=== PATIENT | female | born 1985 | race Caucasian/White ===

== ENCOUNTER 2019-08-14 08:38 | Inpatient (IN) | payer MEDICAID, OTHER ==
[~2019-08-14] VITALS: Ht 167.6 cm; Wt 68.6 kg
[~2019-08-14 08:38] MED LIST: FOLI-17 PO; SULF-169 PO; THIA100T67 PO
[2019-08-14] MEDS ORDERED: SODIUM CHLORIDE FLUSH 10ML SYR IVF ONE (09:00)
--- NOTE | 2019-08-14 09:15 | NUR ---
PT PLACED ON ALL ROOM MONITORING EQUIPMENT. PT KEPT ON 6 LITERS VIA NC WITH SATS IMPROVING TO 94%. PT STATES ON BCP, LMP LAST WEEK. AFTER PT ASSESSMENT, SPOUSE OUTSIDE ROOM INFORMING THIS RN THAT PT IS , TOLD HIM OF SUCH ONE MONTH AGO AND HAS STATED SHE WANTS AN . APPT SCHEDULED WITH MD IN TWO WEEKS. PT WITH HX OF DEPRESSION, BIPOLAR, SCHIZOPHRENIA, CHRONIC BACK PAIN AND HAS BEEN TAKING PAIN MEDICATION INCLUDING HYDROCODONE QID, MORPHINE TID. PT ALSO 1.5 PPD SMOKER. ERP INFORMED OF THIS HX. CALL LIGHT WITHIN REACH. LAB IN TO DRAW. Addendum: 08/14/19 at 0935 by NEGRITA CORRECTION- APPT WITH MD IN TWO DAYS.
[2019-08-14] MEDS ORDERED: MORP-52 PO (09:33)
[2019-08-14] MEDS ORDERED: QUET200T4 PO (09:33)
[2019-08-14] MEDS ORDERED: TRAZ150T62 PO (09:33)
[2019-08-14] MEDS ORDERED: BUSP5TAB2 PO (09:33)
[2019-08-14] MEDS ORDERED: VENL25TA PO (09:33)
[2019-08-14] MEDS ORDERED: VENL150C6 PO (09:34)
[2019-08-14] MEDS ORDERED: MELO15TA24 PO (09:34)
[2019-08-14 09:38] LABS: MEAN CORPUSCULAR HEMOGLOBIN 32.5 pg (27.0-34.8); MEAN CORPUSCULAR HGB CONC 32.9 g/dL (32.4-35.8); MEAN CORPUSCULAR VOLUME 98.9 fL (80-100); PLATELET COUNT 348 x10^3/uL (130-400); RED BLOOD COUNT 3.47 x10^6/uL (3.82-5.3); RED CELL DISTRIBUTION WIDTH 14.5 % (9.6-15.2)
[2019-08-14] MEDS ORDERED: ALBUTEROL SULFATE 2.5 MG/3 ML ONE (09:45)
[2019-08-14 09:50] LABS: ALANINE AMINOTRANSFERASE 42 U/L (12-78); ALBUMIN 2.5 g/dL (3.4-5.0); ANION GAP 5 mmol/L (5-15); CALCIUM 8.2 mg/dL (8.5-10.1); CHLORIDE 111 mmol/L (98-107); CREATININE 0.74 mg/dL (0.55-1.02)
--- NOTE | 2019-08-14 09:59 | NUR ---
[facility] IN TO SEE PT.
[2019-08-14] MEDS ORDERED: CEFTRIAXONE PMX 1GM/50ML 50 ML IVPB ONE (10:00)
[2019-08-14] MEDS ORDERED: AZITHROMYCIN 500 MG in SODIUM CHLORIDE 0.9% 250 ML IVPB ONE (10:00)
[2019-08-14 10:07] LABS: ALKALINE PHOSPHATASE 111 U/L (45-117); BILIRUBIN,TOTAL 0.3 mg/dL (0.2-1.0); TOTAL PROTEIN 7.2 g/dL (6.4-8.2); TROPONIN I < 0.015 ng/mL (0.000-0.045)
[2019-08-14 10:08] LABS: MD YES
--- NOTE | 2019-08-14 10:15 | NUR ---
FLU SWAB COLLECTED/SENT TO LAB.
[2019-08-14] MEDS ORDERED: MORPHINE SULFATE 4 MG/ML, 1ML ONE (10:17)
[2019-08-14] MEDS ORDERED: CEFTRIAXONE PMX 2GM/50ML 50 ML ONE (10:17)
[2019-08-14] MEDS ORDERED: ONDANSETRON 2MG/ML, 2ML ONE (10:17)
[2019-08-14] MEDS: CEFTRIAXONE PMX 2GM/50ML 50 ML IV SCH (10:22)
[2019-08-14] MEDS: morphine SULFATE 10 MG/ML, 1ML IVPush PRN ×3 (10:22→20:57)
--- NOTE | 2019-08-14 10:24 | NUR ---
IV PLACED, NS BOLUS INFUSING. ANTIBIOTIC INFUSING AFTER VERIFICATION BC X 2 DRAWN. PT MEDICATED PER ORDER FOR 02/23 CP. CALL LIGHT WITHIN REACH, SPOUSE AT BS.
[2019-08-14] MEDS ORDERED: SODIUM CHLORIDE 0.9% 1,000ML IVBOLUS ONE ×2 (10:30→11:00)
[2019-08-14] MEDS ORDERED: HEPARIN 5,000 UNITS/ML, 1ML SQ SCH (10:30)
[2019-08-14] MEDS ORDERED: PROMETHAZINE 25 MG/ML, 1ML IM PRN (10:30)
[2019-08-14] MEDS ORDERED: NICOTINE 21 MG/24 HR PATCH.TD24 TD SCH (10:30)
[2019-08-14] MEDS ORDERED: LABETALOL 5MG/ML, 20ML IVPush PRN (10:30)
[2019-08-14] MEDS ORDERED: hydrALAzine 20 MG/ML, 1ML IVPush PRN (10:30)
[2019-08-14] MEDS ORDERED: ONDANSETRON 2MG/ML, 2ML IVPush PRN (10:30)
[2019-08-14] MEDS ORDERED: SODIUM CHLORIDE 0.9% 2,500 ML IV ONE (10:30)
--- NOTE | 2019-08-14 10:36 | NUR ---
PT TO US
[2019-08-14 10:42] LABS: RAPID INFLUENZA A Negative (Negative); RAPID INFLUENZA B Negative (Negative)
--- NOTE | 2019-08-14 10:58 | NUR ---
PT BACK FROM US. FLU NEG, ATTEMPT TO CALL REPORT.
[2019-08-14 11:53] VITALS: BP 121/76
[2019-08-14 12:00] VITALS: BP 121/76
[2019-08-14 12:24] LABS: <PLATELET ESTIMATE> ADEQUATE; <PLT MORPHOLOGY> NORMAL PLT MORPH; <RBC MORPHOLOGY> NORMAL; BANDS%(MANUAL) 2 % (0-7); LYMPH#(MANUAL) 1.59 x10^3/uL (1-3.4); LYMPHS% (MANUAL) 8 % (22-44); MONOS% (MANUAL) 4 % (2-9); SEG#(MANUAL) 17.11 x10^3/uL (1.8-6.8); SEGS% (MANUAL) 86 % (42-75)
[2019-08-14] MEDS: DOCUSATE 100 MG CAPSULE PO SCH ×2 (13:31→21:00)
[2019-08-14] MEDS: GUAIFENESIN 200 MG TABLET PO SCH ×3 (13:31→20:58)
[2019-08-14 14:38] LABS: HCG UR SG 1.019 (1.003-1.030)
[2019-08-14] MEDS: ALBUTEROL/IPRATROPIUM 2.5MG/0.5MG, 3 ML NPPB SCH ×2 (15:00→20:23)
[2019-08-14] MEDS: AZITHROMYCIN 500 MG in SODIUM CHLORIDE 0.9% 250 ML IV SCH (15:38)
[2019-08-14] MEDS: BUSPIRONE 5 MG TABLET PO SCH ×2 (16:19→20:58)
[2019-08-14] MEDS ORDERED: CARI350T14 PO (16:30)
[2019-08-14] MEDS ORDERED: GABA300C10 PO (16:30)
[2019-08-14] MEDS: HYDROcodone/APAP 5/325 TABLET PO PRN (19:05)
[2019-08-14 20:18] VITALS: BP 124/74
[2019-08-14] MEDS: TRAZODONE 150MG TABLET PO SCH (20:58)
[2019-08-14] MEDS: ACETAMINOPHEN 325 MG TABLET PO PRN (22:03)
[2019-08-15 01:19] VITALS: BP 102/55
[2019-08-15] MEDS: ACETAMINOPHEN 325 MG TABLET PO PRN ×2 (02:45→08:44)
[2019-08-15] MEDS: morphine SULFATE 10 MG/ML, 1ML IVPush PRN ×4 (02:45→16:50)
[2019-08-15] MEDS: SODIUM CHLORIDE 0.9% 1,000 ML IV SCH ×2 (02:51→14:57)
[2019-08-15 04:58] VITALS: BP 114/73
[2019-08-15] MEDS: HYDROcodone/APAP 5/325 TABLET PO PRN ×3 (05:03→14:57)
[2019-08-15] MEDS: GUAIFENESIN 200 MG TABLET PO SCH ×4 (05:04→20:34)
[2019-08-15 06:27] LABS: BASOPHILS # (AUTO) 0.04 x10^3/uL (0-0.1); BASOPHILS % (AUTO) 0 % (0-1); EOSINOPHILS # (AUTO) 0.36 x10^3/uL (0-0.4); EOSINOPHILS % (AUTO) 3 % (1-7); LYMPHOCYTES # (AUTO) 2.09 x10^3/uL (1-3.4); LYMPHOCYTES % (AUTO) 18 % (22-44); MD NO; MEAN CORPUSCULAR HEMOGLOBIN 32.1 pg (27.0-34.8); MEAN CORPUSCULAR HGB CONC 33.2 g/dL (32.4-35.8); MEAN CORPUSCULAR VOLUME 96.7 fL (80-100); MEAN PLATELET VOLUME 6.6 fL (7.4-10.4); MONOCYTES # (AUTO) 0.16 x10^3/uL (0.2-0.8); MONOCYTES % (AUTO) 1 % (2-9); NEUTROPHILS # (AUTO) 8.73 x10^3/uL (1.8-6.8); NEUTROPHILS % (AUTO) 77 % (42-75); PLATELET COUNT 335 x10^3/uL (130-400); RED BLOOD COUNT 3.12 x10^6/uL (3.82-5.3); RED CELL DISTRIBUTION WIDTH 14.4 % (9.6-15.2)
[2019-08-15 06:38] LABS: ALANINE AMINOTRANSFERASE 32 U/L (12-78); ALBUMIN 2.1 g/dL (3.4-5.0); ANION GAP 5 mmol/L (5-15); CALCIUM 7.9 mg/dL (8.5-10.1); CHLORIDE 113 mmol/L (98-107); CREATININE 0.52 mg/dL (0.55-1.02)
[2019-08-15 06:40] VITALS: BP 107/73
[2019-08-15 06:41] LABS: ALKALINE PHOSPHATASE 92 U/L (45-117); BILIRUBIN,TOTAL 0.7 mg/dL (0.2-1.0); TOTAL PROTEIN 6.2 g/dL (6.4-8.2)
[2019-08-15] MEDS: ALBUTEROL/IPRATROPIUM 2.5MG/0.5MG, 3 ML NPPB SCH ×4 (07:42→21:10)
[2019-08-15] MEDS: ENOXAPARIN 40 MG/0.4 ML SQ SCH (08:30)
[2019-08-15] MEDS ORDERED: ENOXAPARIN 40 MG/0.4 ML ONE (08:32)
[2019-08-15] MEDS: BUSPIRONE 5 MG TABLET PO SCH ×3 (08:44→20:34)
[2019-08-15] MEDS: DOCUSATE 100 MG CAPSULE PO SCH ×2 (08:44→20:34)
[2019-08-15] MEDS: CEFTRIAXONE PMX 2GM/50ML 50 ML IV SCH (11:10)
[2019-08-15 12:35] VITALS: BP 118/73
[2019-08-15] MEDS: AZITHROMYCIN 500 MG in SODIUM CHLORIDE 0.9% 250 ML IV SCH (14:57)
[2019-08-15] MEDS: BENZONATATE 100 MG CAPSULE PO PRN (16:48)
[2019-08-15 20:30] VITALS: BP 130/79
[2019-08-15] MEDS: TRAZODONE 150MG TABLET PO SCH (20:34)
[2019-08-16] MEDS: BENZONATATE 100 MG CAPSULE PO PRN ×3 (00:19→21:03)
[2019-08-16] MEDS: HYDROcodone/APAP 5/325 TABLET PO PRN ×3 (00:23→16:55)
[2019-08-16 01:34] VITALS: BP 106/58
[2019-08-16] MEDS: SODIUM CHLORIDE 0.9% 1,000 ML IV SCH ×2 (04:32→16:47)
[2019-08-16 05:47] LABS: ALANINE AMINOTRANSFERASE 33 U/L (12-78); ANION GAP 8 mmol/L (5-15); CALCIUM 7.9 mg/dL (8.5-10.1); CHLORIDE 112 mmol/L (98-107); CREATININE 0.56 mg/dL (0.55-1.02)
[2019-08-16 05:49] LABS: ALKALINE PHOSPHATASE 99 U/L (45-117); BILIRUBIN,TOTAL 0.2 mg/dL (0.2-1.0); TOTAL PROTEIN 6.2 g/dL (6.4-8.2)
[2019-08-16] MEDS: GUAIFENESIN 200 MG TABLET PO SCH ×4 (06:20→20:58)
[2019-08-16 07:00] VITALS: BP 109/69
[2019-08-16 07:13] LABS: BASOPHILS # (AUTO) 0.01 x10^3/uL (0-0.1); BASOPHILS % (AUTO) 0 % (0-1); EOSINOPHILS # (AUTO) 0.47 x10^3/uL (0-0.4); EOSINOPHILS % (AUTO) 5 % (1-7); LYMPHOCYTES # (AUTO) 1.37 x10^3/uL (1-3.4); LYMPHOCYTES % (AUTO) 14 % (22-44); MD NO; MEAN CORPUSCULAR HEMOGLOBIN 31.7 pg (27.0-34.8); MEAN CORPUSCULAR HGB CONC 32.7 g/dL (32.4-35.8); MEAN CORPUSCULAR VOLUME 96.9 fL (80-100); MONOCYTES # (AUTO) 0.19 x10^3/uL (0.2-0.8); MONOCYTES % (AUTO) 2 % (2-9); NEUTROPHILS # (AUTO) 8.07 x10^3/uL (1.8-6.8); NEUTROPHILS % (AUTO) 80 % (42-75); PLATELET COUNT 330 x10^3/uL (130-400); RED BLOOD COUNT 3.61 x10^6/uL (3.82-5.3); RED CELL DISTRIBUTION WIDTH 13.9 % (9.6-15.2)
[2019-08-16] MEDS: ENOXAPARIN 40 MG/0.4 ML SQ SCH (08:20)
[2019-08-16] MEDS: ALBUTEROL/IPRATROPIUM 2.5MG/0.5MG, 3 ML NPPB SCH ×4 (08:25→21:20)
[2019-08-16] MEDS: DOCUSATE 100 MG CAPSULE PO SCH ×2 (09:00→20:58)
[2019-08-16] MEDS: CEFTRIAXONE PMX 2GM/50ML 50 ML IV SCH (09:52)
[2019-08-16] MEDS: BUSPIRONE 5 MG TABLET PO SCH ×3 (09:52→20:58)
[2019-08-16 12:17] VITALS: BP 122/69
[2019-08-16] MEDS: ACETAMINOPHEN 325 MG TABLET PO PRN (16:45)
[2019-08-16] MEDS: AZITHROMYCIN 500 MG in SODIUM CHLORIDE 0.9% 250 ML IV SCH (16:47)
[2019-08-16 20:15] VITALS: BP 115/72
[2019-08-16] MEDS: TRAZODONE 150MG TABLET PO SCH (20:58)
[2019-08-17 01:21] VITALS: BP 124/69
[2019-08-17] MEDS: HYDROcodone/APAP 5/325 TABLET PO PRN ×5 (02:10→21:43)
[2019-08-17] MEDS: GUAIFENESIN 200 MG TABLET PO SCH ×4 (04:55→20:26)
[2019-08-17] MEDS: ALBUTEROL/IPRATROPIUM 2.5MG/0.5MG, 3 ML NPPB SCH ×4 (06:43→20:00)
[2019-08-17 06:51] LABS: MEAN CORPUSCULAR HEMOGLOBIN 31.7 pg (27.0-34.8); MEAN CORPUSCULAR HGB CONC 33.4 g/dL (32.4-35.8); MEAN CORPUSCULAR VOLUME 94.9 fL (80-100); MEAN PLATELET VOLUME 6.2 fL (7.4-10.4); PLATELET COUNT 379 x10^3/uL (130-400); RED BLOOD COUNT 3.18 x10^6/uL (3.82-5.3)
[2019-08-17 06:56] LABS: ALANINE AMINOTRANSFERASE 22 U/L (12-78); ALBUMIN 1.8 g/dL (3.4-5.0); ANION GAP 6 mmol/L (5-15); CALCIUM 8.1 mg/dL (8.5-10.1); CHLORIDE 112 mmol/L (98-107); CREATININE 0.47 mg/dL (0.55-1.02)
[2019-08-17 06:58] LABS: ALKALINE PHOSPHATASE 91 U/L (45-117); BILIRUBIN,TOTAL 0.2 mg/dL (0.2-1.0); TOTAL PROTEIN 5.6 g/dL (6.4-8.2)
[2019-08-17 07:40] LABS: BASOPHILS # (AUTO) 0.03 x10^3/uL (0-0.1); BASOPHILS % (AUTO) 1 % (0-1); EOSINOPHILS # (AUTO) 0.16 x10^3/uL (0-0.4); EOSINOPHILS % (AUTO) 2 % (1-7); LYMPHOCYTES # (AUTO) 1.68 x10^3/uL (1-3.4); LYMPHOCYTES % (AUTO) 24 % (22-44); MD SCAN; MONOCYTES # (AUTO) 0.36 x10^3/uL (0.2-0.8); MONOCYTES % (AUTO) 5 % (2-9); NEUTROPHILS # (AUTO) 4.84 x10^3/uL (1.8-6.8); NEUTROPHILS % (AUTO) 68 % (42-75)
[2019-08-17 08:14] VITALS: BP 126/75
[2019-08-17] MEDS: ENOXAPARIN 40 MG/0.4 ML SQ SCH (08:30)
[2019-08-17] MEDS: BENZONATATE 100 MG CAPSULE PO PRN ×2 (08:45→15:59)
[2019-08-17] MEDS: BUSPIRONE 5 MG TABLET PO SCH ×3 (08:45→20:26)
[2019-08-17] MEDS: DOCUSATE 100 MG CAPSULE PO SCH ×2 (09:00→20:26)
[2019-08-17] MEDS: CEFTRIAXONE PMX 2GM/50ML 50 ML IV SCH (11:06)
[2019-08-17 12:42] VITALS: BP 109/70
[2019-08-17 13:14] VITALS: BP 125/78
[2019-08-17] MEDS: SODIUM CHLORIDE 0.9% 1,000 ML IV SCH (15:00)
[2019-08-17] MEDS: AZITHROMYCIN 500 MG TABLET PO SCH (15:03)
[2019-08-17 19:57] VITALS: BP 122/80
[2019-08-17] MEDS: CEFDINIR 300 MG CAPSULE PO SCH (20:26)
[2019-08-17] MEDS: TRAZODONE 150MG TABLET PO SCH (20:26)
[2019-08-18 01:21] VITALS: BP 135/78
[2019-08-18] MEDS: HYDROcodone/APAP 5/325 TABLET PO PRN ×2 (01:56→07:42)
[2019-08-18] MEDS: SODIUM CHLORIDE 0.9% 1,000 ML IV SCH (04:20)
[2019-08-18] MEDS: GUAIFENESIN 200 MG TABLET PO SCH ×2 (04:57→10:57)
[2019-08-18 06:49] VITALS: BP 123/70
[2019-08-18 08:44] LABS: ANION GAP 9 mmol/L (5-15); CALCIUM 8.1 mg/dL (8.5-10.1); CHLORIDE 107 mmol/L (98-107); CREATININE 0.45 mg/dL (0.55-1.02)
[2019-08-18 08:48] LABS: BASOPHILS # (AUTO) 0.02 x10^3/uL (0-0.1); BASOPHILS % (AUTO) 0 % (0-1); EOSINOPHILS # (AUTO) 0.18 x10^3/uL (0-0.4); EOSINOPHILS % (AUTO) 2 % (1-7); LYMPHOCYTES # (AUTO) 2.21 x10^3/uL (1-3.4); LYMPHOCYTES % (AUTO) 27 % (22-44); MD NO; MEAN CORPUSCULAR HEMOGLOBIN 31.5 pg (27.0-34.8); MEAN CORPUSCULAR HGB CONC 32.9 g/dL (32.4-35.8); MEAN CORPUSCULAR VOLUME 95.7 fL (80-100); MONOCYTES # (AUTO) 0.53 x10^3/uL (0.2-0.8); MONOCYTES % (AUTO) 7 % (2-9); NEUTROPHILS # (AUTO) 5.21 x10^3/uL (1.8-6.8); NEUTROPHILS % (AUTO) 64 % (42-75); PLATELET COUNT 460 x10^3/uL (130-400); RED BLOOD COUNT 3.59 x10^6/uL (3.82-5.3); RED CELL DISTRIBUTION WIDTH 13.7 % (9.6-15.2)
[2019-08-18] MEDS: AZITHROMYCIN 500 MG TABLET PO SCH (09:12)
[2019-08-18] MEDS: BUSPIRONE 5 MG TABLET PO SCH (09:12)
[2019-08-18] MEDS: CEFDINIR 300 MG CAPSULE PO SCH (09:12)
[2019-08-18] MEDS: DOCUSATE 100 MG CAPSULE PO SCH (09:12)
[2019-08-18] MEDS: ENOXAPARIN 40 MG/0.4 ML SQ SCH (09:13)
[2019-08-18] MEDS ORDERED: FLU VACC QS2019-20 36MOS UP/PF 0.5 ML IM-VACC ONE (09:30)
[2019-08-18] MEDS ORDERED: CEFD300C37 PO (11:08)
== END 2019-08-18 11:58 | disposition home or self-care (01) | DRG 831 ==
LOC: ED 10:24 → EDIP 10:37 → 4EST 12:24 → DCLOUNGE 08-18 11:49
PROVIDERS: ADMIT Internal Medicine; ATTEND Hospitalist
DX: O98.812 Other maternal infectious and parasitic diseases complicating pregnancy, second trimester (principal); J96.01 Acute respiratory failure with hypoxia; A41.9 Sepsis, unspecified organism; J18.1 Lobar pneumonia, unspecified organism; D63.8 Anemia in other chronic diseases classified elsewhere; E88.09 Other disorders of plasma-protein metabolism, not elsewhere classified; F31.9 Bipolar disorder, unspecified; F43.10 Post-traumatic stress disorder, unspecified; G89.29 Other chronic pain; O99.012 Anemia complicating pregnancy, second trimester; O99.282 Endocrine, nutritional and metabolic diseases complicating pregnancy, second trimester; O26.892 Other specified pregnancy related conditions, second trimester; O99.342 Other mental disorders complicating pregnancy, second trimester; O99.352 Diseases of the nervous system complicating pregnancy, second trimester; M54.9 Dorsalgia, unspecified; O99.512 Diseases of the respiratory system complicating pregnancy, second trimester; Z3A.18 18 weeks gestation of pregnancy; Z87.891 Personal history of nicotine dependence; Z23 Encounter for immunization
CPT/HCPCS: 36415; 36600; 84145; 87400; 99285; J7620; 71046; 76815; 80048; 80053; 81025; 82803; 83605; 83880; 84484; 84702; 84703; 85025; 87040; 90686; 93005; 94640; 94667; G0378; J0456; J0696; J1644; J2405; J2270; J7030; J7050

== ENCOUNTER → 2019-11-05 | Outpatient (CLI) | payer OTHER ==
[~2019-11-05] MED LIST changes: +BUSP5TAB2 PO; +CARI350T14 PO; +CEFD300C37 PO; +GABA300C10 PO; +MELO15TA24 PO; +MORP-52 PO; +QUET200T4 PO; +TRAZ150T62 PO; +VENL150C6 PO; +VENL25TA PO
== END | disposition home or self-care (01) ==
LOC: RAD 13:39
PROVIDERS: ATTEND Nurse Practitioner Family
DX: O09.519 Supervision of elderly primigravida, unspecified trimester (principal); O26.899 Other specified pregnancy related conditions, unspecified trimester; R05 Cough; Z3A.00 Weeks of gestation of pregnancy not specified
CPT/HCPCS: 71046

== ENCOUNTER 2019-11-09 15:31 | Emergency (ER) | payer OTHER ==
[~2019-11-09] VITALS: Ht 167.6 cm; Wt 63.6 kg
[2019-11-09] MEDS ORDERED: DIPHENHYDRAMINE 25 MG CAPSULE ONE ×2 (15:58→16:01)
[2019-11-09] MEDS ORDERED: DIPHENHYDRAMINE 25 MG CAPSULE PO ONE (16:00)
--- NOTE | 2019-11-09 16:12 | NUR ---
SPEAKING IN FULL SENTENCNES, LUNGS CTAB. SATTING WELL. OOB TO BATHROOM GAIT STEADY. L AND D STS FHR 140. CALL GIANG IN REACH. XR/LABS PENDING. STS COUGH X3 DAYS, NON RPODUCTIVE.
[2019-11-09 16:31] VITALS: BP 121/73
--- NOTE | 2019-11-09 16:32 | NUR ---
PT C/O SOB, ANXIETY, "PLEASE SOMEONE HELP ME I'M GOING TO HAVE AN ANXIETY ATTACK". SPEAKING FULL SNETENCES. SEE VITALS CHARTED. WILL NOTIFY .
--- NOTE | 2019-11-09 16:44 | NUR ---
PT TOLD THERE ARE NO OTHER DRUGS SAFE IN , STS "THEN I WANT TO LEAVE". HERIBERTO NOTIFIED. PT TBDC, XR CLEAR.
== END 2019-11-09 17:13 | disposition home or self-care (01) ==
LOC: ED 15:57
DX: O99.343 Other mental disorders complicating pregnancy, third trimester (principal); F41.1 Generalized anxiety disorder; R06.00 Dyspnea, unspecified; Z87.891 Personal history of nicotine dependence; Z3A.29 29 weeks gestation of pregnancy
CPT/HCPCS: 71045; 93005; 99283; Q0163

== ENCOUNTER 2019-12-08 05:03 | Inpatient (IN) | payer OTHER ==
[~2019-12-08] VITALS: Ht 167.6 cm; Wt 64.1 kg
[2019-12-08 05:23] VITALS: BP 136/83
[2019-12-08 05:30] LABS: MICROSCOPIC NOT IND
[2019-12-08 05:43] LABS: AMPHETAMINE SCREEN, URINE Negative (Negative); BARBITURATE SCREEN, URINE Negative (Negative); BENZODIAZEPINE SCREEN, URINE Negative (Negative); CANNABINOID SCREEN, URINE Negative (Negative); COCAINE SCREEN, URINE Negative (Negative); METHADONE SCREEN, URINE Negative (Negative); OPIATE SCREEN, URINE Positive (Negative)
[2019-12-08] MEDS ORDERED: LACTATED RINGERS 1,000 ML IV SCH (06:03)
[2019-12-08] MEDS ORDERED: D5%-LACTATED RINGERS 1,000 ML IV SCH (06:03)
[2019-12-08] MEDS ORDERED: OXYTOCIN 30U/ 0.9% NaCL 500ML 500 ML IV ONE (06:03)
[2019-12-08] MEDS ORDERED: FENTANYL/BUPIV./NS/PF 250 ML EPIDCONT SCH (06:05)
[2019-12-08] MEDS ORDERED: FENTANYL PF 100 MCG/2ML ONE (06:20)
[2019-12-08] MEDS ORDERED: FENTANYL PF 100 MCG/2ML IV PRN (06:30)
[2019-12-08] MEDS ORDERED: TERBUTALINE 1 MG/ML, 1ML IVPush PRN (06:30)
[2019-12-08] MEDS ORDERED: ONDANSETRON 2MG/ML, 2ML IVPush PRN (06:30)
[2019-12-08] MEDS ORDERED: TERBUTALINE 1 MG/ML, 1ML SQ PRN (06:30)
[2019-12-08] MEDS ORDERED: FENTANYL PF 100 MCG/2ML IVPush PRN (06:30)
[2019-12-08] MEDS ORDERED: NEWBORN KIT ONE (06:48)
[2019-12-08] MEDS ORDERED: LIDOCAINE 1%, 20ML ONE (06:49)
[2019-12-08] MEDS ORDERED: MISOPROSTOL 200 MCG TABLET ONE (06:49)
[2019-12-08] MEDS ORDERED: OXYTOCIN 30U/ 0.9% NaCL 500ML 500 ML ONE ×2 (06:49→08:11)
[2019-12-08] MEDS ORDERED: PENICILLIN GK 2,500,000 UNITS in DEXTROSE 5% 100 ML IVPB SCH (07:00)
[2019-12-08] MEDS ORDERED: PENICILLIN GK 5,000,000 UNITS in DEXTROSE 5% 100 ML IVPB ONE (07:00)
[2019-12-08 07:08] LABS: BASOPHILS # (AUTO) 0.06 x10^3/uL (0-0.1); BASOPHILS % (AUTO) 1 % (0-1); EOSINOPHILS # (AUTO) 0.23 x10^3/uL (0-0.4); EOSINOPHILS % (AUTO) 2 % (1-7); LYMPHOCYTES % (AUTO) 26 % (22-44); MD NO; MEAN CORPUSCULAR HEMOGLOBIN 31.1 pg (27.0-34.8); MEAN CORPUSCULAR HGB CONC 32.7 g/dL (32.4-35.8); MEAN CORPUSCULAR VOLUME 95.1 fL (80-100); MEAN PLATELET VOLUME 8.2 fL (7.4-10.4); MONOCYTES # (AUTO) 0.61 x10^3/uL (0.2-0.8); MONOCYTES % (AUTO) 5 % (2-9); NEUTROPHILS # (AUTO) 7.61 x10^3/uL (1.8-6.8); NEUTROPHILS % (AUTO) 66 % (42-75); PLATELET COUNT 301 x10^3/uL (130-400); RED BLOOD COUNT 3.99 x10^6/uL (3.82-5.3); RED CELL DISTRIBUTION WIDTH 15.4 % (9.6-15.2)
[2019-12-08] MEDS ORDERED: BUPIVACAINE 0.25% ONE (07:18)
[2019-12-08] MEDS ORDERED: OXYcodone/APAP 5/325MG TABLET ONE (07:47)
[2019-12-08] MEDS ORDERED: BUSPIRONE 5 MG TABLET PO PRN (08:00)
[2019-12-08] MEDS ORDERED: MISOPROSTOL 200 MCG TABLET PR PRN (08:00)
[2019-12-08] MEDS ORDERED: METHYLERGONOVINE 0.2 MG/ML IM PRN (08:00)
[2019-12-08] MEDS ORDERED: OXYcodone/APAP 5/325MG TABLET PO PRN (08:00)
[2019-12-08] MEDS ORDERED: IBUPROFEN 800 MG TABLET PO PRN (08:00)
[2019-12-08] MEDS ORDERED: DOCUSATE 100 MG CAPSULE PO PRN (08:00)
[2019-12-08] MEDS ORDERED: ONDANSETRON 2MG/ML, 2ML IV PRN (08:00)
[2019-12-08] MEDS ORDERED: SIMETHICONE 80 MG CHEW TAB PO PRN (08:00)
[2019-12-08] MEDS ORDERED: HYDROcodone/APAP 5/325 TABLET PO PRN (08:00)
[2019-12-08] MEDS: OXYcodone/APAP 5/325MG TABLET PO PRN ×3 (08:01→19:17)
[2019-12-08] MEDS ORDERED: PREN1TAB60 PO (08:09)
[2019-12-08] MEDS ORDERED: Vitamin D PO (08:09)
[2019-12-08] MEDS: OXYTOCIN 30U/ 0.9% NaCL 500ML 500 ML IV SCH ×2 (08:13→17:52)
[2019-12-08] MEDS: PRENATAL VIT/IRON/FA 1 EACH TABLET PO SCH (09:00)
[2019-12-08 09:15] VITALS: BP 136/88
[2019-12-08] MEDS: VENLAFAXINE 75 MG CAP ER PO SCH (11:09)
[2019-12-08] MEDS: GABAPENTIN 300 MG CAPSULE PO SCH ×2 (11:10→16:00)
[2019-12-08 12:00] VITALS: BP 132/78
[2019-12-08 16:00] VITALS: BP 129/82
[2019-12-08] MEDS ORDERED: OXYC-307 PO (16:37)
[2019-12-08 19:45] VITALS: BP 137/80
[2019-12-08] MEDS ORDERED: GABAPENTIN 300 MG CAPSULE PO PRN (22:00)
[2019-12-09 00:26] VITALS: BP 124/75
[2019-12-09] MEDS: OXYcodone/APAP 5/325MG TABLET PO PRN ×3 (01:03→09:05)
[2019-12-09] MEDS: OXYTOCIN 30U/ 0.9% NaCL 500ML 500 ML IV SCH (02:12)
[2019-12-09 04:00] VITALS: BP 137/85
[2019-12-09 08:00] VITALS: BP 118/76
[2019-12-09] MEDS: PRENATAL VIT/IRON/FA 1 EACH TABLET PO SCH (09:00)
[2019-12-09] MEDS: VENLAFAXINE 75 MG CAP ER PO SCH (09:04)
[2019-12-09] MEDS ORDERED: IBUP-1222 PO ×2 (11:03→11:04)
== END 2019-12-09 13:25 | disposition home or self-care (01) | DRG 805 ==
LOC: LDOP 05:03 → LDIP 06:06 → 2NW 09:03
PROVIDERS: ADMIT Student in an Organized Health Care Education/Training Program; ATTEND Student in an Organized Health Care Education/Training Program
PROC: 10E0XZZ Delivery of Products of Conception, External Approach (ICD-10-PCS; principal; 2019-12-08)
DX: O99.324 Drug use complicating childbirth (principal); O60.14X0 Preterm labor third trimester with preterm delivery third trimester, not applicable or unspecified; Z37.0 Single live birth; F11.20 Opioid dependence, uncomplicated; O99.344 Other mental disorders complicating childbirth; F32.9 Major depressive disorder, single episode, unspecified; O99.334 Smoking (tobacco) complicating childbirth; F17.210 Nicotine dependence, cigarettes, uncomplicated; G89.29 Other chronic pain; O70.0 First degree perineal laceration during delivery; Z3A.34 34 weeks gestation of pregnancy
CPT/HCPCS: 36415; 80307; 81003; 84112; 85025; 86592; 86850; 86900; 87086; G0378; J2540; J3010; J2590; J7120